=== PATIENT | female | born 1995 | race Hispanic/Latino ===

== ENCOUNTER 2019-08-22 18:04 | Emergency (ER) | payer OTHER ==
[~2019-08-22] VITALS: Ht 147.3 cm; Wt 68.0 kg
--- NOTE | 2019-08-22 18:43 | NUR ---
report to FITO Tubbs
[2019-08-22] MEDS ORDERED: IBUPROFEN 600 MG TAB PO STA (19:20)
[2019-08-22] MEDS ORDERED: SODIUM CHLORIDE 0.9% 1000ML 1,000 ML IV SCH (19:30)
--- NOTE | 2019-08-22 19:34 | Emergency Department Note ---
History of Present Illnes History of Present Illness Chief Complaint: Flu Like Symptoms History of Present Illness This is a 24 year old female who presents with a 3 day history of intermittent fever and chills, with highest fever today of 102.5. She also began to have substernal cp today, that feels like a "pressure" in her chest. The pain is constant. She denies any associated SOB, N/V or dizziness. 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 Pt was tested for COVID19 2 days ago, at [facility], and those results are still pending. She denies any URI symptoms, cough, abdominal pain or diarrhea. 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 Required: No Onset (how long ago): day(s) (3) Location: substernal cp Quality: tight, heavy Radiation: non-radiation Severity: moderate Duration (how long): day(s) (3) Timing of current episode: constant Progression: worsening Chronicity: new Context: recent illness, recent immobilization, recent travel; trauma/injury Relieving factors: none Exacerbating factors: none Associated symptoms: chest pain, fever/chills Treatments prior to arrival: antipyretic (Tylenol) Risk factors: None, other than she works with the public Past Medical/Family History Physician Review I have reviewed the patient's past medical and family history. Any updates have been documented here. Past Medical History Recent Fever: Yes Clinical Suspicion of Infectio: Yes New/Unexplained Change in Ment: Yes Past Medical History: None Past Surgical History: None Social History Smoking Cessation: Never Smoker Alcohol Use: Occasional Any Illegal Drug Use: No TB Exposure/Symptoms: No Physically hurt or threatened: No Family History Family history of heart diseas: No Other Any Pre-Existing Lines (PICC,: No Is patient up to date on immun: Yes Review of Systems Review of Systems Constitutional: chills, fever, malaise EENTM: no symptoms Cardiovascular: chest pain Respiratory: no symptoms Gastrointestinal: no symptoms Genitourinary: no symptoms Musculoskeletal: no symptoms Neurological: no symptoms Review of other systems All other systems reviewed and negative. Physical Exam Related Data Allergies: Coded Allergies: No Known Allergies (Unverified , 08/22/19) Triage Vital Signs See nurse's notes Vital signs reviewed: Yes Physical Exam CONSTITUTIONAL Constitutional: well-developed, well-nourished HENT HENT: normocephalic, atraumatic, oropharynx clear/moist, nose normal HENT L/R: left TM normal, right TM normal, left ext ear normal, right ext ear normal EYES Eyes: PERRL, conjunctivae normal NECK Neck: ROM normal PULMONARY Pulmonary: effort normal, breath sounds normal CARDIOVASCULAR Cardiovascular: regular rhythm, heart sounds normal, intact distal pulses GASTROINTESTINAL Abdominal: soft, nontender, bowel sounds normal GENITOURINARY Genitourinary: exam deferred SKIN Skin: warm, dry MUSCULOSKELETAL Musculoskeletal: ROM normal NEUROLOGICAL Neurological: alert, oriented x 3, no gross motor or sensory deficits PSYCHOLOGICAL Psychological: mood/affect normal, judgement normal Results Laboratory Lab results reviewed: Yes Laboratory comments CMP - normal cardiacs - normal CBC - normal UA - blo - trace, Pro 100 mg/dl, ilya - small UPT - negative Imaging Imaging results reviewed: Yes Impressions CT Chest, w/o contrast - Negative; Procedures 12 Lead ECG Interpretation Gospel Worker: Interpreted by ED physician Date: August 22, 2019 Time: 20:13 Prior MASTER PILOT tracings: not available for review Rhythm: sinus tachycardia Rate: tachycardia BPM: 109 QRS axis: normal ST segments normal: Yes T waves normal: Yes Clinical Impression: abnormal ECG Critical Care Time Subsequent provider I assumed direction of critical care for this patient from another provider of my specialty. Assessment & Plan Assessment & Plan Final Impression: (1) Acute viral syndrome (2) Nonspecific chest pain (3) Febrile illness, acute Assessment & Plan - Reviewed results of diagnostics with patient. CT chest did not reveal any viral pneumonia or findings suggestive of Covid 19. - CP resolved with dose of Toradol, so may be musculoskeletal. Trial of Naproxen bid - Increase fluid intake, especially with fever - Follow-up on Covid 19 testing that was performed at one of the critical access hospital testing sites. 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 - pt voiced understanding of the plan and ambulated out of the ED, in NAD. Depart Disposition: HOME, SELF-alf Meds Active Scripts Naproxen (NAPROXEN) 250 Mg Tablet, 500 MG PO BID for chest pain, #30 TAB 0 Refills Prov:JOAQUÍN MARTIN MD 08/22/19 Medications in the ED Ibuprofen 600 mg ONCE STAT PO ; Start 08/22/19 at 19:20; Stop 08/22/19 at 19:21 Sodium Chloride 1,000 ml @ 0 mls/hr Q0M IV ; Start 08/22/19 at 19:30; Stop 09/21/19 at 19:29 JOAQUÍN MARTIN MD August 22, 2019 19:34
[2019-08-22] MEDS ORDERED: IBUPROFEN 600 MG TAB ONE (20:05)
[2019-08-22] MEDS ORDERED: SODIUM CHLORIDE 0.9% 1000ML 1,000 ML ONE (20:05)
--- NOTE | 2019-08-22 20:17 | Diagnostic Imaging Report ---
EXAMINATION: CT scan of the chest without contrast. TECHNIQUE: Spiral CT images of the chest were performed from the lung apices to the level of the adrenal glands. No intravenous contrast was administered per physician's request. Coronal and sagittal reformatted images were obtained. COMPARISON: None. CLINICAL HISTORY:Fever, chest pain, substernal chest pain DISCUSSION: ABSENCE OF INTRAVENOUS CONTRAST DECREASES SENSITIVITY FOR DETECTION OF FOCAL LESIONS AND VASCULAR PATHOLOGY. LINES/TUBES: None. LUNGS AND AIRWAYS: The lungs are clear. No pulmonary nodules, masses or consolidation. The airways are normal, without endobronchial lesions. PLEURA: No pneumothorax or pleural effusions. HEART AND MEDIASTINUM: The thyroid gland is normal. The heart and pericardium are within normal limits. Aorta is nonaneurysmal. Pulmonary artery is normal in caliber. LYMPH NODES: There is no mediastinal, hilar or axillary lymphadenopathy. ABDOMEN: Limited contrast-enhanced views of the upper abdomen show no abnormality within the visualized liver, spleen, pancreas, or kidneys. The adrenal glands are normal. BONES AND SOFT TISSUES: No aggressive lytic or suspicious sclerotic lesions. Soft tissues are grossly unremarkable. IMPRESSION: 1. Essentially unremarkable chest CT. Signed by: Dr. Aleksander Madrigal M.D. on 08/22/2019 8:14 PM
[2019-08-22] MEDS ORDERED: NAPROXEN250 MG PO (21:28)
[2019-08-22 21:30] VITALS: BP 134/60
== END 2019-08-22 21:57 | disposition home or self-care (01) ==
LOC: FSED 18:04
DX: R50.9 Fever, unspecified (principal); R07.89 Other chest pain; B34.9 Viral infection, unspecified
CPT/HCPCS: 71250; 80053; 81003; 81025; 82553; 84484; 85025; 99284; J7030